=== PATIENT | female | born 1995 ===

== ENCOUNTER 2020-05-20 01:26 | Inpatient (IN) | payer MEDICAID ==
--- NOTE | 2020-05-20 02:43 | PCM.LDHP ---
L&D History of Present Illness - General Date of Service: 05/20/20 Admit Problem/Dx: Patient Status Order with Admit Dx/Problem 05/20/20 02:02 Patient Status [ADT] Routine Admission Diagnosis/Problem Admission Diagnosis/Problem Source of Information: Patient History Limitations: Reports: No Limitations - History of Present Illness Improves with: Reports: None Worsens with: Reports: None Associated Symptoms: Reports: N H&P Review of Systems - Review of Systems: Review Of Systems: See Below General: Reports: No Symptoms HEENT: Reports: No Symptoms Pulmonary: Reports: No Symptoms Cardiovascular: Reports: No Symptoms Gastrointestinal: Reports: No Symptoms Genitourinary: Reports: No Symptoms Musculoskeletal: Reports: No Symptoms Skin: Reports: No Symptoms Psychiatric: Reports: No Symptoms Neurological: Reports: No Symptoms Hematologic/Lymphatic: Reports: No Symptoms Immunologic: Reports: No Symptoms L&D Exam - Exam Exam: See Below - OB Specific Contraction Intensity: Moderate Movement: Active Heart Tones: Present Presentation: Vertex - Jeronimo Score Jeronimo Score Cervix Position: Midposition Jeronimo Score Consistency: Soft Jeronimo Score Effacement: >80% Jeronimo Score Dilation: 3-4 cm Jeronimo Score 's Station: -2 Jeronimo Score Total: 9 - Exam General: Alert, Oriented HEENT: PERRLA, Conjunctiva Clear, EACs Clear, EOMI, Hearing Intact, Mucosa Moist & [place], Nares Patent, Normal Nasal Septum, Posterior Pharynx Clear, TMs Clear Neck: Supple, Trachea Midline Lungs: Clear to Auscultation, Normal Respiratory Effort Cardiovascular: Regular Rate, Regular Rhythm GI/Abdominal Exam: Normal Bowel Sounds, Soft, Non-Tender, No Organomegaly, No Distention, No Abnormal Bruit, No Mass, Pelvis Stable Rectal Exam: Normal Exam, Normal Rectal Tone Genitourinary: Normal external exam, Normal bimanual exam, Normal speculum exam Back Exam: Normal Inspection, Full Range of Motion Extremities: Normal Inspection, Normal Range of Motion, Non-Tender, No Pedal Edema, Normal Capillary Refill Skin: Warm, Dry, Intact Neurological: Cranial Nerves Intact, Reflexes Equal Bilateral Psychiatric: Alert, Normal Affect, Normal Mood Problem List Initiated/Reviewed/Updated: Yes Orders Last 24hrs: Active Orders 24 hr Category Date Time Status Patient Status [ADT] Routine ADT 05/20/20 02:02 Active Non Stress Test [RC] PER UNIT ROUTINE Care 05/20/20 02:02 Active Up ad Stephanie [RC] ASDIRECTED Care 05/20/20 02:02 Active Vaginal Exam [RC] Click to Edit Care 05/20/20 02:02 Active Vital Signs [RC] PER UNIT ROUTINE Care 05/20/20 02:02 Active CORONAVIRUS COVID-19 AMY [MOLEC] Stat Lab 05/20/20 01:58 Received Resuscitation Status Routine Resus Stat 05/20/20 02:02 Ordered Assessment/Plan Comment:: IUP 39+ wks in early active labor.
[2020-05-20] MEDS ORDERED: Sodium Chloride 0.9% 10 ML SDV IV PRN (04:39)
[2020-05-20] MEDS ORDERED: Lidocaine 1% 50 ML MDV INJECT PRN (04:39)
[2020-05-20] MEDS ORDERED: Misoprostol 200 MCG Tab PO PRN (04:39)
[2020-05-20] MEDS ORDERED: Sodium Chloride 0.9% 2.5 ML Syringe FLUSH PRN (04:39)
[2020-05-20] MEDS ORDERED: Water For Irrigation,Sterile 1,000 ML Container IRR PRN (04:39)
[2020-05-20] MEDS ORDERED: Carboprost Tromethamine 250 MCG/1 ML Amp IM PRN (04:39)
[2020-05-20] MEDS ORDERED: Methylergonovine 0.2 MG/1 ML Amp IM PRN (04:39)
[2020-05-20] MEDS ORDERED: Nalbuphine 10 MG/1 ML Vial IVPUSH PRN (04:39)
[2020-05-20] MEDS ORDERED: Tranexamic Acid 1,000 MG in Sodium Chloride 0.9% 100 ML IV PRN (04:39)
[2020-05-20] MEDS ORDERED: Sodium Chloride 0.9% 10 ML Syringe FLUSH PRN (04:39)
[2020-05-20] MEDS ORDERED: Butorphanol 1 MG/ML SDV IVPUSH PRN (04:39)
[2020-05-20] MEDS ORDERED: Oxytocin/0.9 % Sodium Chloride 30 UNIT/500 ML BAG IV SCH ×2 (04:45→09:45)
[2020-05-20] MEDS: Lactated Ringers 1,000 ML IV SCH ×2 (06:01→06:53)
[2020-05-20] MEDS ORDERED: fentaNYL 100 MCG/2 ML SDV ONE (06:22)
[2020-05-20] MEDS ORDERED: Ropivacaine HCl/PF 100 ML ONE (06:23)
--- NOTE | 2020-05-20 06:40 | PCM.PREANE ---
Preanesthetic Assessment - Anesthesia/Transfusion/Family Hx Anesthesia History: No Prior Anesthesia Family History of Anesthesia Reaction: No - Physical Assessment NPO Status Date: 05/20/20 NPO Status Time: 00:05 Height: 1.55 m Weight: 72.575 kg ASA Class: 2 - Lab Values: Laboratory Last Values WBC 12.78 K/uL (4.0-11.0) H 05/20/20 05:05 RBC 4.14 M/uL (4.30-5.90) L 05/20/20 05:05 Hgb 12.6 g/dL (12.0-16.0) 05/20/20 05:05 Hct 37.6 % (36.0-46.0) 05/20/20 05:05 MCV 90.8 fL (80.0-98.0) 05/20/20 05:05 MCH 30.4 pg (27.0-32.0) 05/20/20 05:05 MCHC 33.5 g/dL (31.0-37.0) 05/20/20 05:05 RDW Std Deviation 41.2 fl (28.0-62.0) 05/20/20 05:05 RDW Coeff of Cherise 12 % (11.0-15.0) 05/20/20 05:05 Plt Count 233 K/uL (150-400) 05/20/20 05:05 MPV 10.80 fL (7.40-12.00) 05/20/20 05:05 Nucleated RBC % 0.0 /100WBC 05/20/20 05:05 Nucleated RBCs # 0 K/uL 05/20/20 05:05 SARS-CoV-2 RNA (AMY) NEGATIVE (NEGATIVE) 05/20/20 01:58 Blood Type B POSITIVE 05/20/20 05:05 Antibody Screen NEGATIVE 05/20/20 05:05 - Allergies Allergies/Adverse Reactions: Allergies Allergy/AdvReac Type Severity Reaction Status Date / Time No Known Allergies Allergy Verified 05/20/20 05:57 - Acknowledgements Anesthesia Type Planned: Epidural Pt an Appropriate Candidate for the Planned Anesthesia: Yes Alternatives and Risks of Anesthesia Discussed w Pt/Guardian: Yes Pt/Guardian Understands and Agrees with Anesthesia Plan: Yes PreAnesthesia Questionnaire HEENT History: Reports: None 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: Reports: - Infectious Disease History Infectious Disease History: Reports: Chicken Pox - CURRENT (IN HOUSE) MEDS Current Meds: Current Medications Butorphanol Tartrate (Stadol) 1 mg IVPUSH Q1H PRN PRN Reason: Pain Last Admin: 05/20/20 05:58 Dose: 1 mg Documented by: Carboprost Tromethamine (Hemabate Ds) 250 mcg IM ASDIRECTED PRN PRN Reason: Post Hemorrhage Lactated Ringer's (Ringers, Lactated) 1,000 mls @ 150 mls/hr IV ASDIRECTED JAN Last Admin: 05/20/20 06:01 Dose: 999 mls/hr Documented by: Oxytocin/Sodium Chloride (Oxytocin 30 Unit/500 Ml-Ns) 30 unit in 500 mls @ 999 mls/hr IV TITRATE JAN Tranexamic Acid 1,000 mg/ (Sodium Chloride) 110 mls @ 660 mls/hr IV ONETIME PRN PRN Reason: Bleeding Lidocaine HCl (Xylocaine 1%) 50 ml INJECT ONETIME PRN PRN Reason: Laceration repair Methylergonovine Maleate (Methergine) 0.2 mg IM ASDIRECTED PRN PRN Reason: Post Hemorrhage Misoprostol (Cytotec) 200 mcg PO ONETIME PRN PRN Reason: Post Hemorrhage Nalbuphine HCl (Nubain) 10 mg IVPUSH Q1H PRN PRN Reason: Pain (severe 7-10) Sodium Chloride (Saline Flush) 10 ml FLUSH ASDIRECTED PRN PRN Reason: Keep Vein Open Sodium Chloride (Saline Flush) 2.5 ml FLUSH ASDIRECTED PRN PRN Reason: Keep Vein Open Sodium Chloride (Normal Saline) 10 ml IV ASDIRECTED PRN PRN Reason: IV Use Sterile Water (Sterile Water For Irrigation) 1,000 ml IRR ASDIRECTED PRN PRN Reason: delivery Discontinued Medications Fentanyl (Sublimaze) Confirm Administered Dose 100 mcg .ROUTE .STK-MED ONE Stop: 05/20/20 06:23 Ropivacaine (Naropin 0.2%) Confirm Administered Dose 100 mls @ as directed .ROUTE .STK-MED ONE Stop: 05/20/20 06:24
--- NOTE | 2020-05-20 06:44 | PCM.PRNOTE ---
- Free Text/Narrative Note: Anes Note Patient requests epidural for L&D. Sitting position. Level L3-L4 midline appraoch. Sterile technique. Chloraprep scrub to lumbar area. Sterile fenestrated drape applied. Epidural space easily achieved single attempt using TRA technique. TRA at 3 cm. Cath threaded 5 cm with ease. Cath secured at skin using sterile clear adhesive dressing. Test 0625 3 cc 1.5% lido with epi negative. 0628 Load 10 cc 0.2% ropivicaine with 1 mcg cc fentanyl in slow divided doses. 0635 Pump started wtih 90 cc same solution. Rate is 8 cc hr with 6 cc q 20 min prn bolus. Larry well. Time with patient [phone] Emeka Shepherd CONTROLS TECHNICIAN
--- NOTE | 2020-05-20 08:27 | PCM.SN.2 ---
- Free Text/Narrative Note: checked on pt after report of hptn without pt symptoms. Pt with bp of 75/ , has mild nausea, no pain, dilated to 9 cm. Have stopped epidural, 10 mg of ephedrine given with increase in BP to 98/ , will recheck pt in 15-30 min.
[2020-05-20] MEDS ORDERED: Terbutaline 1 MG/ML SDV SUBCUT PRN (09:38)
[2020-05-20] MEDS ORDERED: Bisacodyl 10 MG Supp RECTAL PRN (12:55)
[2020-05-20] MEDS ORDERED: Ibuprofen 400 MG Tab PO PRN (12:55)
[2020-05-20] MEDS ORDERED: Lanolin 100% Cream 7 GM Tube TOP PRN (12:55)
[2020-05-20] MEDS ORDERED: Benzocaine/Menthol 20%-0.5% Spray 78 GM Cannister TOP PRN (12:55)
[2020-05-20] MEDS ORDERED: oxyCODONE 5 MG Tab PO PRN (12:55)
[2020-05-20] MEDS ORDERED: Docusate Sodium 100 MG Cap PO PRN (12:55)
[2020-05-20] MEDS ORDERED: Acetaminophen 500 MG Tab PO PRN ×2 (12:55)
[2020-05-20] MEDS ORDERED: Witch Hazel Medicated Pads 40/Jar TOP PRN (12:55)
[2020-05-20] MEDS ORDERED: Ibuprofen 800 MG Tab PO PRN (12:55)
--- NOTE | 2020-05-20 13:02 | PCM.DEL ---
L & D Note - General Info Date of Service: 05/20/20 Mother's Due Date: 05/23/20 - Delivery Note Labor: Spontaneous, Augmented by ARM Delivery Outcome: Livebirth Delivery Method: Spontaneous Vaginal Delivery-Single Infant Delivery Mode: Spontaneous Presentation: Vertex Nuchal Cord: None Anesthesia Type: Epidural Amniotic Fluid Description: Clear Episiotomy Type: None Laceration: 1st Degree, Perineal Suture type: Vicryl Suture size: 3-0 Placenta: Intact, Spontaneous Cord: 3 Vessels Estimated Blood Loss: 300 Resuscitation Needed: No [place]: Stimulated, Warmed, [place] Used Score 1 min: 9 Score 5 min: 9 Second Stage Interventions: Reports: Pushing Effectively, Pushing, Stirrups/Leg Supports Delivery Comments (Free Text/Narrative):: Shruthi is a 24 yo at 39+4 weeks gestation (ANGELLA 05/23/2020) S/P uncomplicated of term, viable . B pos, RNI, GBS neg. Adequate epidural analgesia. Cephalic presentation. head delivered OA spontaneously, asynclitic molding noted, body following shortly after with the next push with terminal meconium present on buttocks. [place] placed to maternal abdomen, warmed, dried, stimulated with spontaneous cries. Umbilical cord left intact for ~4 min, clamped x 2, cut by CNM. Pitocin bolus commenced, gentle cord traction applied for active third stage management. Placenta birthed ~8 min S/P , intact, Ch[place], 3VC. Perineum inspected, 1st degree perineal laceration noted, repaired with 3.[address], hemostatic and edematous. Uterus firm @U-1. Small vaginal bleeding noted, no clots. EBL 300 ml. APGARS 9/9. weight: 7 lbs 9 oz. - General Info Date of Service: 05/20/20 Admission Dx/Problem (Free Text): Patient Status Order with Admit Dx/Problem 05/20/20 02:02 Patient Status [ADT] Routine Admission Diagnosis/Problem Admission Diagnosis/Problem Functional Status: Reports: Pain Controlled - Review of Systems General: Reports: No Symptoms HEENT: Reports: No Symptoms Pulmonary: Reports: No Symptoms Cardiovascular: Reports: No Symptoms Gastrointestinal: Reports: No Symptoms Genitourinary: Reports: No Symptoms Musculoskeletal: Reports: No Symptoms Skin: Reports: No Symptoms Neurological: Reports: No Symptoms Psychiatric: Reports: No Symptoms - Patient Data Vitals - Most Recent: See flowsheet. Hemodynamically stable, afebrile. Weight - Most Recent: 160 lb Lab Results Last 24 Hours: Laboratory Results - last 24 hr 05/20/20 05/20/20 05/20/20 Range/Units 01:58 05:05 05:05 WBC 12.78 H (4.0-11.0) K/uL RBC 4.14 L (4.30-5.90) M/uL Hgb 12.6 (12.0-16.0) g/dL Hct 37.6 (36.0-46.0) % MCV 90.8 (80.0-98.0) fL MCH 30.4 (27.0-32.0) pg MCHC 33.5 (31.0-37.0) g/dL RDW Std Deviation 41.2 (28.0-62.0) fl RDW Coeff of Cherise 12 (11.0-15.0) % Plt Count 233 (150-400) K/uL MPV 10.80 (7.40-12.00) fL Nucleated RBC % 0.0 /100WBC Nucleated RBCs # 0 K/uL SARS-CoV-2 RNA (AMY) NEGATIVE (NEGATIVE) Blood Type B POSITIVE Antibody Screen NEGATIVE Med Orders - Current: Current Medications Acetaminophen (Tylenol Extra Strength) 500 mg PO Q4H PRN PRN Reason: Pain Acetaminophen (Tylenol Extra Strength) 1,000 mg PO Q4H PRN PRN Reason: Pain Benzocaine/Menthol (Dermoplast Pain Relief 20%-0.5% [place]) 78 gm TOP ASDIRECTED PRN PRN Reason: Perineal Comfort Measure Bisacodyl (Dulcolax) 10 mg RECTAL ONETIME PRN PRN Reason: Constipation Docusate Sodium (Colace) 100 mg PO BID PRN PRN Reason: Constipation Emollient Ointment (Lansinoh Hpa) 0 gm TOP ASDIRECTED PRN PRN Reason: Sore Nipples Ibuprofen (Motrin) 400 mg PO Q4H PRN PRN Reason: Pain Ibuprofen (Motrin) 800 mg PO Q6H PRN PRN Reason: Pain Oxycodone HCl (Oxycodone) 5 mg PO Q2H PRN PRN Reason: Pain Witch Leeann (Tucks) 1 pad TOP ASDIRECTED PRN PRN Reason: comfort care Discontinued Medications Butorphanol Tartrate (Stadol) 1 mg IVPUSH Q1H PRN PRN Reason: Pain Last Admin: 05/20/20 05:58 Dose: 1 mg Documented by: Carboprost Tromethamine (Hemabate Ds) 250 mcg IM ASDIRECTED PRN PRN Reason: Post Hemorrhage Fentanyl (Sublimaze) Confirm Administered Dose 100 mcg .ROUTE .STK-MED ONE Stop: 05/20/20 06:23 Lactated Ringer's (Ringers, Lactated) 1,000 mls @ 150 mls/hr IV ASDIRECTED JAN Last Admin: 05/20/20 06:53 Dose: 999 mls/hr Documented by: Oxytocin/Sodium Chloride (Oxytocin 30 Unit/500 Ml-Ns) 30 unit in 500 mls @ 999 mls/hr IV TITRATE JAN Tranexamic Acid 1,000 mg/ (Sodium Chloride) 110 mls @ 660 mls/hr IV ONETIME PRN PRN Reason: Bleeding Ropivacaine (Naropin 0.2%) Confirm Administered Dose 100 mls @ as directed .ROUTE .STStartDate Labs-MED ONE Stop: 05/20/20 06:24 Oxytocin/Sodium Chloride (Oxytocin 30 Unit/500 Ml-Ns) 30 unit in 500 mls @ 2 mls/hr IV TITRATE JAN; Protocol Last Titration: 05/20/20 11:34 Dose: 500 munits/min, 500 mls/hr Documented by: Lidocaine HCl (Xylocaine 1%) 50 ml INJECT ONETIME PRN PRN Reason: Laceration repair Methylergonovine Maleate (Methergine) 0.2 mg IM ASDIRECTED PRN PRN Reason: Post Hemorrhage Misoprostol (Cytotec) 200 mcg PO ONETIME PRN PRN Reason: Post Hemorrhage Nalbuphine HCl (Nubain) 10 mg IVPUSH Q1H PRN PRN Reason: Pain (severe 7-10) Sodium Chloride (Saline Flush) 10 ml FLUSH ASDIRECTED PRN PRN Reason: Keep Vein Open Sodium Chloride (Saline Flush) 2.5 ml FLUSH ASDIRECTED PRN PRN Reason: Keep Vein Open Sodium Chloride (Normal Saline) 10 ml IV ASDIRECTED PRN PRN Reason: IV Use Sterile Water (Sterile Water For Irrigation) 1,000 ml IRR ASDIRECTED PRN PRN Reason: delivery Terbutaline Sulfate (Brethine) 0.25 mg SUBCUT ASDIRECTED PRN PRN Reason: Tacysystole - Exam General: Alert, Oriented, Cooperative, No Acute Distress HEENT: Pupils Equal, Pupils Reactive, Mucous Membr. Moist/[place] Neck: Supple Lungs: Clear to Auscultation, Normal Respiratory Effort Cardiovascular: Regular Rate, Regular Rhythm GI/Abdominal Exam: Normal Bowel Sounds, Soft, Non-Tender, No Organomegaly, No Distention (Female) Exam: Normal External Exam, Enlarged Uterus ( uterus, firm U-1), Vaginal Bleeding (Small rubra lochia, no clots) Back Exam: Normal Inspection, Full Range of Motion Extremities: Normal Inspection, Normal Range of Motion, Non-Tender, No Pedal Edema, Normal Capillary Refill Skin: Warm, Dry, Intact Wound/Incisions: No Drainage (Repaired, hemostatic, edematous, no drainage.) Neurological: No New Focal Deficit (BLE epidural analgesia) Psy/Mental Status: Alert, Normal Affect, Normal Mood - Problem List & Annotations (1) (spontaneous vaginal delivery) SNOMED Code(s): 008372835 Code(s): O80 - ENCOUNTER FOR FULL-TERM UNCOMPLICATED DELIVERY Status: Acute Priority: High Current Visit: Yes (2) Lactating mother SNOMED Code(s): 743518808, 823190463 Code(s): Z39.1 - ENCOUNTER FOR CARE AND EXAMINATION OF LACTATING MOTHER Status: Acute Priority: High Current Visit: Yes - Problem List Review Problem List Initiated/Reviewed/Updated: Yes - My Orders Last 24 Hours: My Active Orders 05/20/20 Lunch Regular Diet [DIET] 05/20/20 12:55 Patient Status [ADT] Routine May Shower [RC] ASDIRECTED Up ad Stephanie [RC] ASDIRECTED Vital Signs [RC] PER UNIT ROUTINE Acetaminophen [Tylenol Extra Strength] 1,000 mg PO Q4H PRN Acetaminophen [Tylenol Extra Strength] 500 mg PO Q4H PRN Benzocaine/Menthol [Dermoplast Pain Relief 20%-0.5% [place]] 78 gm TOP ASDIRECTED PRN Docusate Sodium [Colace] 100 mg PO BID PRN Ibuprofen [Motrin] 400 mg PO Q4H PRN Ibuprofen [Motrin] 800 mg PO Q6H PRN Lanolin [Lansinoh HPA] See Dose Instructions TOP ASDIRECTED PRN bisacodyL [Dulcolax] 10 mg RECTAL ONETIME PRN oxyCODONE 5 mg PO Q2H PRN witch Leeann [Tucks] 1 pad TOP ASDIRECTED PRN Assess Lochia [WOMSER] Per Unit Routine Assess Uterine Involution [WOMSER] Per Unit Routine Ice Therapy [OM.PC] Per Unit Routine Perineal Care [OM.PC] Per Unit Routine Peripheral IV Discontinue [OM.PC] Routine Sitz Bath [OM.PC] Per Unit Routine Resuscitation Status Routine 05/20/20 12:56 Cooling Warming Measures [RC] ASDIRECTED - Plan Plan:: Admit inpatient to unit S/P uncomplicated of viable, term . D/C epidural analgesia as ordered, may ambulate in 2-4 hours with return of sensation. May resume normal diet and hydrate as needed. May call lactating support if necessary. See new orders. Dr. Argueta notified and agreeable with POC.
--- NOTE | 2020-05-21 07:41 | PCM48HPAN ---
Post Anesthesia Note - EVALUATION WITHIN 48HRS OF ANESTHETIC Vital Signs in Normal Range: Yes Patient Participated in Evaluation: Yes Respiratory Function Stable: Yes Airway Patent: Yes Cardiovascular Function Stable: Yes Hydration Status Stable: Yes (Taking PO well) Pain Control Satisfactory: Yes (Reports satisfactory pain control, pain 3/10) Nausea and Vomiting Control Satisfactory: Yes (Denies nausea) Mental Status Recovered: Yes Vital Signs: Last Vital Signs Temp 36.2 C 05/21/20 06:00 Pulse 97 05/21/20 06:00 Resp 18 05/21/20 06:00 BP 111/65 05/21/20 06:00 Pulse Ox 97 05/21/20 06:00 - COMMENTS/OBSERVATIONS Free Text/Narrative:: Pt reports full return of strength and sensation to BLE, ambulating without difficulty.
--- NOTE | 2020-05-21 09:50 | PCM.PNPP ---
- General Info Date of Service: 05/21/20 Admission Dx/Problem (Free Text): Patient Status Order with Admit Dx/Problem 05/20/20 02:02 Patient Status [ADT] Routine Admission Diagnosis/Problem Admission Diagnosis/Problem Shruthi is a 24 yo PPD0 S/P uncomplicated to term NBM. B pos, Ab screen, RNI, GBS neg. Patient has no complaints or concerns at this time. Patient is fairly well, expresses need for lactating support. Resting comfortably in bed with in arms. Patient reports she is eating, voiding, ambulating independently and without difficulty. Patient denies any problems or concerns at this time except mild-moderate intermittent uterine cramping relieved with Tylenol. Patient reports small to moderate vaginal bleeding with no clots. Functional Status: Reports: Pain Controlled - Review of Systems General: Reports: No Symptoms HEENT: Reports: No Symptoms Pulmonary: Reports: No Symptoms Cardiovascular: Reports: No Symptoms Gastrointestinal: Reports: No Symptoms Genitourinary: Reports: No Symptoms Musculoskeletal: Reports: No Symptoms Skin: Reports: No Symptoms Neurological: Reports: No Symptoms Psychiatric: Reports: No Symptoms - General Info Date of Service: 05/21/20 - Patient Data Vital Signs - Most Recent: Last Vital Signs Temp 96.9 F 05/21/20 07:39 Pulse 81 05/21/20 07:39 Resp 14 05/21/20 07:39 BP 115/56 L 05/21/20 07:39 Pulse Ox 97 05/21/20 07:39 Weight - Most Recent: 160 lb Med Orders - Current: Current Medications Acetaminophen (Tylenol Extra Strength) 500 mg PO Q4H PRN PRN Reason: Pain Acetaminophen (Tylenol Extra Strength) 1,000 mg PO Q4H PRN PRN Reason: Pain Last Admin: 05/21/20 03:12 Dose: 1,000 mg Documented by: Benzocaine/Menthol (Dermoplast Pain Relief 20%-0.5% [place]) 78 gm TOP ASDIRECTED PRN PRN Reason: Perineal Comfort Measure Last Admin: 05/20/20 17:18 Dose: 1 can Documented by: Bisacodyl (Dulcolax) 10 mg RECTAL ONETIME PRN PRN Reason: Constipation Docusate Sodium (Colace) 100 mg PO BID PRN PRN Reason: Constipation Emollient Ointment (Lansinoh Hpa) 0 gm TOP ASDIRECTED PRN PRN Reason: Sore Nipples Ibuprofen (Motrin) 400 mg PO Q4H PRN PRN Reason: Pain Ibuprofen (Motrin) 800 mg PO Q6H PRN PRN Reason: Pain Oxycodone HCl (Oxycodone) 5 mg PO Q2H PRN PRN Reason: Pain Witch Leeann (Tucks) 1 pad TOP ASDIRECTED PRN PRN Reason: comfort care Last Admin: 05/20/20 17:18 Dose: 1 container Documented by: Discontinued Medications Butorphanol Tartrate (Stadol) 1 mg IVPUSH Q1H PRN PRN Reason: Pain Last Admin: 05/20/20 05:58 Dose: 1 mg Documented by: Carboprost Tromethamine (Hemabate Ds) 250 mcg IM ASDIRECTED PRN PRN Reason: Post Hemorrhage Fentanyl (Sublimaze) Confirm Administered Dose 100 mcg .ROUTE .STK-MED ONE Stop: 05/20/20 06:23 Lactated Ringer's (Ringers, Lactated) 1,000 mls @ 150 mls/hr IV ASDIRECTED JAN Last Admin: 05/20/20 06:53 Dose: 999 mls/hr Documented by: Oxytocin/Sodium Chloride (Oxytocin 30 Unit/500 Ml-Ns) 30 unit in 500 mls @ 999 mls/hr IV TITRATE JAN Tranexamic Acid 1,000 mg/ (Sodium Chloride) 110 mls @ 660 mls/hr IV ONETIME PRN PRN Reason: Bleeding Ropivacaine (Naropin 0.2%) Confirm Administered Dose 100 mls @ as directed .ROUTE .STK-MED ONE Stop: 05/20/20 06:24 Oxytocin/Sodium Chloride (Oxytocin 30 Unit/500 Ml-Ns) 30 unit in 500 mls @ 2 mls/hr IV TITRATE JAN; Protocol Last Titration: 05/20/20 11:34 Dose: 500 munits/min, 500 mls/hr Documented by: Lidocaine HCl (Xylocaine 1%) 50 ml INJECT ONETIME PRN PRN Reason: Laceration repair Methylergonovine Maleate (Methergine) 0.2 mg IM ASDIRECTED PRN PRN Reason: Post Hemorrhage Misoprostol (Cytotec) 200 mcg PO ONETIME PRN PRN Reason: Post Hemorrhage Nalbuphine HCl (Nubain) 10 mg IVPUSH Q1H PRN PRN Reason: Pain (severe 7-10) Sodium Chloride (Saline Flush) 10 ml FLUSH ASDIRECTED PRN PRN Reason: Keep Vein Open Sodium Chloride (Saline Flush) 2.5 ml FLUSH ASDIRECTED PRN PRN Reason: Keep Vein Open Sodium Chloride (Normal Saline) 10 ml IV ASDIRECTED PRN PRN Reason: IV Use Sterile Water (Sterile Water For Irrigation) 1,000 ml IRR ASDIRECTED PRN PRN Reason: delivery Terbutaline Sulfate (Brethine) 0.25 mg SUBCUT ASDIRECTED PRN PRN Reason: Tacysystole - Infant Interaction Infant Disposition, : at Bedside Infant Interaction: Holding Infant Feeding: Attempted ; Nursed Fair/Poor, Continues to Breastfeed, Difficulty with Latch-on, Encouraged to Breastfeed Support Person: Significant Other - Recovery Exam Fundal Tone: Firm Fundal Level: 1 Fingerbreadths Below Umbilicus Fundal Placement: Midline Lochia Amount: Moderate Lochia Color: Rubra/Red Perineum Description: Intact, Minimal Bruising/Swelling, Edematous, Other (see below) (1st degree laceration approximated, hemostatic) Other Perinuem Description: 1st degree laceration Episiotomy/Laceration: Approximated Bladder Status: Voiding Urinary Elimination: Voided - Exam General: Alert, Oriented, Cooperative, No Acute Distress HEENT: Pupils Equal, Pupils Reactive, Mucous Membr. Moist/[place] Neck: Supple Lungs: Clear to Auscultation, Normal Respiratory Effort Cardiovascular: Regular Rate, Regular Rhythm GI/Abdominal Exam: Normal Bowel Sounds, Soft, Non-Tender, No Organomegaly, No Distention Extremities: Normal Inspection, Normal Range of Motion, Non-Tender, No Pedal Edema, Normal Capillary Refill Skin: Warm, Dry, Intact Wound/Incisions: No Drainage Neurological: No New Focal Deficit Psy/Mental Status: Alert, Normal Affect, Normal Mood - Problem List & Annotations (1) (spontaneous vaginal delivery) SNOMED Code(s): 140884494 Code(s): O80 - ENCOUNTER FOR FULL-TERM UNCOMPLICATED DELIVERY Status: Acute Priority: High Current Visit: Yes (2) Lactating mother SNOMED Code(s): 356611637, 079024744 Code(s): Z39.1 - ENCOUNTER FOR CARE AND EXAMINATION OF LACTATING MOTHER Status: Acute Priority: High Current Visit: Yes - Problem List Review Problem List Initiated/Reviewed/Updated: Yes - My Orders Last 24 Hours: My Active Orders 05/20/20 Lunch Regular Diet [DIET] 05/20/20 12:55 Patient Status [ADT] Routine May Shower [RC] ASDIRECTED Up ad Stephanie [RC] ASDIRECTED Vital Signs [RC] PER UNIT ROUTINE Acetaminophen [Tylenol Extra Strength] 1,000 mg PO Q4H PRN Acetaminophen [Tylenol Extra Strength] 500 mg PO Q4H PRN Benzocaine/Menthol [Dermoplast Pain Relief 20%-0.5% [place]] 78 gm TOP ASDIRECTED PRN Docusate Sodium [Colace] 100 mg PO BID PRN Ibuprofen [Motrin] 400 mg PO Q4H PRN Ibuprofen [Motrin] 800 mg PO Q6H PRN Lanolin [Lansinoh HPA] See Dose Instructions TOP ASDIRECTED PRN bisacodyL [Dulcolax] 10 mg RECTAL ONETIME PRN oxyCODONE 5 mg PO Q2H PRN witch Leeann [Tucks] 1 pad TOP ASDIRECTED PRN Assess Lochia [WOMSER] Per Unit Routine Assess Uterine Involution [WOMSER] Per Unit Routine Ice Therapy [OM.PC] Per Unit Routine Perineal Care [OM.PC] Per Unit Routine Peripheral IV Discontinue [OM.PC] Routine Sitz Bath [OM.PC] Per Unit Routine Resuscitation Status Routine 05/20/20 12:56 Cooling Warming Measures [RC] ASDIRECTED - Plan Plan:: Continue inpatient route of care. hr shared services consultant consulted today, plans to see patient this evening for support. Plan for D/C home this evening or tomorrow PM pending / progression. Dr. Argueta notified and agreeable with POC.
== END 2020-05-21 17:50 | disposition home or self-care (01) | DRG 807 ==
LOC: MW.OBCHECK 01:26 → MW.OB 01:30 → MW.OBCHECK 04:39 → MW.OB 04:39 → OBSVTOIN 12:55 → MW.OB 16:17
PROVIDERS: ADMIT Obstetrics & Gynecology; ATTEND Obstetrics & Gynecology
PROC: 10E0XZZ Delivery of Products of Conception, External Approach (ICD-10-PCS; principal; 2020-05-20)
PROC: 0HQ9XZZ Repair Perineum Skin, External Approach (ICD-10-PCS; 2020-05-20)
PROC: 3E0R3BZ Introduction of Anesthetic Agent into Spinal Canal, Percutaneous Approach (ICD-10-PCS; 2020-05-20)
PROC: 00HU33Z Insertion of Infusion Device into Spinal Canal, Percutaneous Approach (ICD-10-PCS; 2020-05-20)
DX: O77.0 Labor and delivery complicated by meconium in amniotic fluid (principal); Z37.0 Single live birth; Z3A.39 39 weeks gestation of pregnancy; O70.0 First degree perineal laceration during delivery; Z20.828 Contact with and (suspected) exposure to other viral communicable diseases
CPT/HCPCS: 01967; 36415; 51702; 59409; 85027; 86592; 86850; 86900; 86901; A9270-GY; J0595; J2590; J7120; U0002